=== PATIENT | female | born 1995 | race Caucasian/White ===

== ENCOUNTER 2019-05-09 15:06 | Emergency (ER) | payer BC ==
[~2019-05-09] VITALS: Ht 162.6 cm; Wt 64.0 kg
[2019-05-09] MEDS ORDERED: IV NORMAL SALINE 1,000ML 1,000 ML IV SCH (16:12)
[2019-05-09 16:25] LABS: BASO # 0.1 x10^3/uL (0.0-0.2); BASO % 1 % (0-3); EOS # 0.1 x10^3/uL (0.0-0.7); EOS % 1 % (0-3); HEMATOCRIT 36.6 % (36.0-47.0); HEMOGLOBIN 11.8 g/dL (12.0-15.5); LYMPH # 1.1 x10^3/uL (1.0-4.8); LYMPH % 8 % (24-48); MEAN CORPUSCULAR HEMOGLOBIN 29 pg (25-35); MEAN CORPUSCULAR HGB CONC 32 g/dL (31-37); MEAN CORPUSCULAR VOLUME 89 fL (79-100); MONO % 7 % (0-9); NEUT # 12.5 x10^3uL (1.8-7.7); NEUT % 84 % (31-73); PLATELET COUNT 268 x10^3/uL (140-400); RED BLOOD COUNT 4.12 x10^6/uL (3.50-5.40); RED CELL DISTRIBUTION WIDTH 13.7 % (11.5-14.5); WHITE BLOOD COUNT 14.9 x10^3/uL (4.0-11.0)
[2019-05-09 16:39] LABS: ALBUMIN 3.4 g/dL (3.4-5.0); ALBUMIN/GLOBULIN RATIO 1.1 (1.0-1.7); CALCIUM 8.6 mg/dL (8.5-10.1); CREATININE 0.8 mg/dL (0.6-1.0); GFR 89.7; POTASSIUM 3.7 mmol/L (3.5-5.1); TOTAL BILIRUBIN 0.4 mg/dL (0.2-1.0); TOTAL PROTEIN 6.4 g/dL (6.4-8.2)
[2019-05-09 16:46] LABS: BACTERIA,URINE FEW /HPF (0-FEW); BILIRUBIN,URINE NEG (NEG); CLARITY,URINE CLEAR; COLOR,URINE YELLOW; GLUCOSE,URINE NEG (NEG); NITRITE,URINE NEG (NEG); RBC,URINE RARE /HPF (0-2); SQUAMOUS EPITHELIAL CELL,UR MOD /LPF; UROBILINOGEN,URINE 0.2 mg/dL (0.2 mg/dL)
--- NOTE | 2019-05-09 17:58 | RAD ---
Exam: Ultrasound pelvis Indication: Pelvic pain Technique: Real-time grayscale and color Doppler images of the pelvis were obtained by the department floor runner. Transabdominal and transvaginal images only Comparisons: None FINDINGS: Limited exam and complete evaluation was not performed secondary to emergent nature and patient condition. Uterus measures 8.6 x 5.3 x 3.7 cm. Moderate amount of Doppler free fluid noted within the pelvis. And left adnexa there is a ectopic with heart rate measured at 155 bpm. IMPRESSION: Live left adnexal ectopic , with a moderate amount of complex free fluid in the abdomen. FOR INTERNAL CODING PURPOSES Critical result: Findings discussed with AMY WEINBERG at 05/09/2019 5:54 PM. RESULT CODE: (C) Electronically signed by: Dayna Bejarano MD (05/09/2019 5:55 PM) [facility]
[2019-05-09] MEDS ORDERED: IV RINGERS SOLUTION,LACTATED 1,000 ML IV ONE (18:15)
[2019-05-09 18:16] VITALS: BP 111/62
--- NOTE | 2019-05-09 18:24 | PHYS DOC ---
Past History Past Medical History: No Pertinent History Past Surgical History: No Surgical History Alcohol Use: Occasionally Drug Use: None Adult General Chief Complaint Chief Complaint: ABDOMINAL PAIN HPI HPI Patient is a 24 year old female who presents with complaint of lower abdominal pain. Patient states that she started having pain proxy one hour prior to arrival. States that she has been having sharp pain in her lower pelvis and lower abdomen, mostly along the right side. The patient states that she took a test one week ago and noted that this was positive. Patient states her last muscle. Was April 06, 2019. Notes that her pain has been sharp and worsens with movement. States it improves while at rest. Has not seen an OB doctor since having a positive test. Has not taking medications for her symptoms. Denies any fevers or urinary symptoms. Review of Systems Review of Systems Constitutional: Denies fever or chills [] Eyes: Denies change in visual acuity, redness, or eye pain [] HENT: Denies nasal congestion or sore throat [] Respiratory: Denies cough or shortness of breath [] Cardiovascular: No additional information not addressed in HPI [] GI: Abdominal pain, denies nausea, vomiting, or diarrhea[] : Pelvic pain, denies abnormal discharge or bleeding[] Musculoskeletal: Denies back pain or joint pain [] Integument: Denies rash or skin lesions [] Neurologic: Denies headache, focal weakness or sensory changes [] All other systems were reviewed and found to be within normal limits, except as documented in this note. Current Medications Current Medications Current Medications Medications (Trade) Dose Ordered Sig/Flor Start Time Stop Time Status Last Admin Dose Admin Lactated Ringer's 1,000 ml @ 150 mls/hr 1X ONCE 05/09/19 18:15 05/10/19 00:54 05/09/19 18:13 150 MLS/HR Sodium Chloride 1,000 ml @ 1,000 mls/hr Q1H 05/09/19 16:12 05/09/19 17:11 DC 05/09/19 16:20 1,000 MLS/HR Allergies Allergies Allergies Coded Allergies Type Severity Reaction Last Updated Verified Sulfa (Sulfonamide Antibiotics) Adverse Reaction Unknown 05/09/19 Yes Physical Exam Physical Exam Constitutional: Well developed, well nourished, no acute distress, non-toxic appearance. [] HENT: Normocephalic, atraumatic, bilateral external ears normal, oropharynx mois t, no oral exudates, nose normal. [] Eyes: PERRLA, EOMI, conjunctiva normal, no discharge. [] Neck: Normal range of motion, no tenderness, supple, no stridor. [] Cardiovascular:Heart rate regular rhythm, no murmur [] Lungs & Thorax: Bilateral breath sounds clear to auscultation [] Abdomen: Bowel sounds normal, soft, suprapubic and right lower quadrant tenderness to palpation with minimal guarding, no rebound tenderness, no masses, no pulsatile masses. [] Skin: Warm, dry, no erythema, no rash. [] Back: No tenderness, no CVA tenderness. [] Extremities: No tenderness, no cyanosis, no clubbing, ROM intact, no edema. [] Neurologic: Alert and oriented X 3, normal motor function, normal sensory fun ction, no focal deficits noted. [] Current Patient Data Vital Signs Vital Signs Date Time Temp Pulse Resp B/P (MAP) Pulse Ox O2 Delivery O2 Flow Rate FiO2 05/09/19 18:16 109 22 111/62 (78) 98 Room Air 05/09/19 15:42 98.7 Lab Results Laboratory Tests Test 05/09/19 15:46 05/09/19 16:04 05/09/19 16:17 Urine Collection Type Unknown Urine Color Yellow Urine Clarity Clear Urine pH 5.5 Urine Specific Silva 1.025 Urine Protein Neg (NEG-TRACE) Urine Glucose (UA) Neg mg/dL (NEG) Urine Ketones (Stick) Neg mg/dL (NEG) Urine Blood Neg (NEG) Urine Nitrite Neg (NEG) Urine Bilirubin Neg (NEG) Urine Urobilinogen Dipstick 0.2 mg/dL (0.2 mg/dL) Urine Leukocyte Esterase Trace (NEG) Urine RBC Rare /HPF (0-2) Urine WBC 5-10 /HPF (0-4) Urine Squamous Epithelial Cells Mod /LPF Urine Bacteria Few /HPF (0-FEW) Urine Mucus Marked /LPF POC Urine HCG, Qualitative hcg positive (Negative) White Blood Count 14.9 x10^3/uL (4.0-11.0) H Red Blood Count 4.12 x10^6/uL (3.50-5.40) Hemoglobin 11.8 g/dL (12.0-15.5) L Hematocrit 36.6 % (36.0-47.0) Mean Corpuscular Volume 89 fL (79-100) Mean Corpuscular Hemoglobin 29 pg (25-35) Mean Corpuscular Hemoglobin Concent 32 g/dL (31-37) Red Cell Distribution Width 13.7 % (11.5-14.5) Platelet Count 268 x10^3/uL (140-400) Neutrophils (%) (Auto) 84 % (31-73) H Lymphocytes (%) (Auto) 8 % (24-48) L Monocytes (%) (Auto) 7 % (0-9) Eosinophils (%) (Auto) 1 % (0-3) Basophils (%) (Auto) 1 % (0-3) Neutrophils # (Auto) 12.5 x10^3uL (1.8-7.7) H Lymphocytes # (Auto) 1.1 x10^3/uL (1.0-4.8) Monocytes # (Auto) 1.0 x10^3/uL (0.0-1.1) Eosinophils # (Auto) 0.1 x10^3/uL (0.0-0.7) Basophils # (Auto) 0.1 x10^3/uL (0.0-0.2) Maternal Serum HCG Beta Subunit 49030 mIU/mL (0-6) H Sodium Level 139 mmol/L (136-145) Potassium Level 3.7 mmol/L (3.5-5.1) Chloride Level 104 mmol/L (98-107) Carbon Dioxide Level 25 mmol/L (21-32) Anion Gap 10 (6-14) Blood Urea Nitrogen 15 mg/dL (7-20) Creatinine 0.8 mg/dL (0.6-1.0) Estimated GFR (Cockcroft-Gault) 89.7 BUN/Creatinine Ratio 19 (6-20) Glucose Level 108 mg/dL (70-99) H Calcium Level 8.6 mg/dL (8.5-10.1) Total Bilirubin 0.4 mg/dL (0.2-1.0) Aspartate Amino Transferase (AST) 14 U/L (15-37) L Alanine Aminotransferase (ALT) 15 U/L (14-59) Alkaline Phosphatase 52 U/L (46-116) Total Protein 6.4 g/dL (6.4-8.2) Albumin 3.4 g/dL (3.4-5.0) Albumin/Globulin Ratio 1.1 (1.0-1.7) EKG EKG Not performed[] Radiology/Procedures Radiology/Procedures [address] [id number] IMAGING REPORT Signed PATIENT: DONALDO DENNIS FACCOUNT: [id number] : 1995 LOCATION: ER AGE: 24 SEX: F EXAM STATUS: REG ER ORD. PHYSICIAN: AMY WEINBERG MD REASON: pelvic pain, LMP 04/06/19, positive test PROCEDURE: PREG 1ST TRIMESTER Exam: Ultrasound pelvis Indication: Pelvic pain Technique: Real-time grayscale and color Doppler images of the pelvis were obtained by the department correspondence section supervisor. Transabdominal and transvaginal images only Comparisons: None FINDINGS: Limited exam and complete evaluation was not performed secondary to emergent nature and patient condition. Uterus measures 8.6 x 5.3 x 3.7 cm. Moderate amount of Doppler free fluid noted within the pelvis. And left adnexa there is a ectopic with heart rate measured at 155 bpm. IMPRESSION: Live left adnexal ectopic , with a moderate amount of complex free fluid in the abdomen. FOR INTERNAL CODING PURPOSES Critical result: Findings discussed with AMY WEINBERG at 05/09/2019 5:54 PM. RESULT CODE: (C) Electronically signed by: Dayna Teague MD (05/09/2019 5:55 PM) [facility] DICTATED AND SIGNED BY: DAYNA ETAGUE MD DATE: 05/09/19 8089 CC: AMY WEINBERG MD; PCP,NO ~ [] Course & Med Decision Making Course & Med Decision Making Pertinent Labs and Imaging studies reviewed. (See chart for details) Patient started on IV fluids in the emergency department. Ultrasound shows findings that confirm left ectopic as well as free fluid in the pelvis concerning for ruptured ectopic . Spoke with patient regarding necessity for emergent transfer to a higher level of care as she will need TECHNICAL SERVICES ASSISTANT consultation and likely need for surgery tonight. She consented to transfer to [facility]. I spoke with Dr. Villegas who will accept patient for emergent transfer to [facility]. Spoke with patient regarding plan of care and she is in agreement at time of disposition.[] Dragon Disclaimer Dragon Disclaimer This electronic medical record was generated, in whole or in part, using a voice recognition dictation system. Departure Departure: Impression: Primary Impression: Ruptured ectopic Disposition: XFER SHT-TRM HOSP Condition: GUARDED Referrals: PCP,NO (PCP) AMY WEINBERG MD May 09, 2019 18:24
== END 2019-05-09 18:43 | disposition short-term general hospital (02) ==
LOC: ER 15:09
DX: O00.202 Left ovarian pregnancy without intrauterine pregnancy (principal); Z88.2 Allergy status to sulfonamides
CPT/HCPCS: 36415; 76801; 80053; 81001; 81025; 84702; 85025; 87086; 99291; J7120; J7030